=== PATIENT | male | born 1995 | race Caucasian/White ===

== ENCOUNTER → 2016-11-24 00:26 | Emergency (ER) | payer SELFPAY ==
[2016-11-24 01:16] LABS: Hematocrit 51 % (42-52); Hemoglobin 17.3 g/dl (14.0-18.0); Mean Corpuscular HGB Conc 34 g/dl (31-36); Mean Corpuscular Hemoglobin 30 pg (27-31); Mean Corpuscular Volume 88 fL (80-94); Mean Platelet Volume 9 um3 (7.4-10.4); Red Blood Count 5.73 10^6/ul (4.0-5.4); Red Cell Distribution Width 13 % (10.5-15)
[2016-11-24 01:33] LABS: ALT 21 U/L (7-52); AST 15 U/L (13-39); Alkaline Phosphatase 110 U/L (34-104); Anion Gap 8 mmol/L (2-11); BUN/Creatinine Ratio 6.7 (8-20); Blood Urea Nitrogen 7 mg/dL (6-24); CO2 Carbon Dioxide 24 mmol/L (22-32); Calcium 9.8 mg/dL (8.6-10.3); Chloride 107 mmol/L (101-111); EGFR African American 117.1 (>60); Globulin 2.9 g/dL (2-4); Glucose 88 mg/dL (70-100); Potassium 3.7 mmol/L (3.5-5.0); Sodium 139 mmol/L (133-145); Total Protein 7.9 g/dL (6.4-8.9)
[2016-11-24 01:41] LABS: Acetaminophen < 15 mcg/mL; Alcohol 132 mg/dL (<10); Salicylate < 2.50 mg/dL (<30)
[2016-11-24 01:52] LABS: TSH (Thyroid Stimulating Horm) 1.45 mcIU/mL (0.34-5.60)
--- NOTE | 2016-11-24 02:06 | ED ---
Geraldo Bui Rebecca, scribed for Zaheer Villeda MD on 11/24/16 at 0108 . Psychiatric Complaint - HPI Summary HPI Summary: Pt is a 21 y/o M BIB police as a 941 who presents to ED with SIs for a month. Pt reports he messaged somebody concerning the SIs and they called the review specialist. Sx aggravated and alleviated by nothing. He currently has no plan in place. No other complaints at this time. PMHx anxiety. - History Of Current Complaint Chief Complaint: EDMentalHealth Time Seen by Provider: 11/24/16 00:42 Hx Obtained From: Patient Onset/Duration: Lasting Weeks - 1 month, Still Present Aggravating Factor(s): Nothing Alleviating Factor(s): Nothing Associated Signs And Symptoms: Positive: Negative Related History: Positive For: Prior Psychiatric Issues - Anxiety Has Suicidal: Reports: Thoughts - Allergies/Home Medications Allergies/Adverse Reactions: Allergies Allergy/AdvReac Type Severity Reaction Status Date / Time Dust Mite Extract Allergy Runny Nose Verified 04/08/14 15:36 Pollen Extract Allergy Sneezing Verified 04/08/14 15:06 Sulfa Antibiotics Allergy Hives Verified 04/08/14 15:05 PMH/Surg Hx/FS Hx/Imm Hx Endocrine/Hematology History: Denies: Hx Diabetes, Hx Thyroid Disease Respiratory History: Reports: Hx Asthma - allergy induced- pollen, dust, mold Sensory History: Reports: Hx Contacts or Glasses Opthamlomology History: Reports: Hx Contacts or Glasses Psychiatric History: Reports: Hx Anxiety, Hx Attention Deficit Hyperactivity Disorder, Hx Eating Disorder, Hx Community Mental Health Tx, Hx of Violent Episodes Against Others - Surgical History Surgery Procedure, Year, and Place: T&A- 2003- [facility] Hx Anesthesia Reactions: No - Immunization History Date of Tetanus Vaccine: unknown Date of Influenza Vaccine: none Infectious Disease History: No Infectious Disease History: Denies: Traveled Outside the [place] in Last 30 Days - Family History Known Family History: Negative: Cardiac Disease - Social History Alcohol Use: Occasionally Substance Use Type: Reports: Cocaine, Marijuana Substance Use Comment - Amount & Last Used: none for 50 days Smoking Status (MU): Current Every Day Smoker Review of Systems Negative: Fever Positive: Other - SIs All Other Systems Reviewed And Are Negative: Yes Physical Exam Triage Information Reviewed: Yes Vital Signs On Initial Exam: Initial Vitals Temp Pulse Resp BP Pulse Ox 98.6 F 87 18 127/63 99 11/24/16 00:31 11/24/16 00:31 11/24/16 00:31 11/24/16 00:31 11/24/16 00:31 Vital Signs Reviewed: Yes Appearance: Positive: Well-Appearing, No Pain Distress Skin: Positive: Warm Head/Face: Positive: Normal Head/Face Inspection Eyes: Positive: ANTHONY ENT: Positive: Hearing grossly normal Neck: Positive: Supple Respiratory/Lung Sounds: Positive: Breath Sounds Present Cardiovascular: Positive: RRR Abdomen Description: Positive: Nontender, Soft Bowel Sounds: Positive: Present Musculoskeletal: Positive: Strength/ROM Intact Neurological: Positive: Alert, Oriented to Person Place, Time Psychiatric: Positive: Affect/Mood Appropriate - [place] Coma Scale Coma Scale Total: 15 Diagnostics - Vital Signs Vital Signs Temp Pulse Resp BP Pulse Ox 11/24/16 00:31 98.6 F 87 18 127/63 99 - Laboratory Result Diagrams: 11/24/16 01:00 11/24/16 01:00 Lab Statement: Any lab studies that have been ordered have been reviewed, and results considered in the medical decision making process. Course/Dx - Course Assessment/Plan: Pt is a 21 y/o M BIB police as a 941 who presents to ED with SIs for a month. Pt reports he messaged somebody concerning the SIs and they called the review specialist. Sx aggravated and alleviated by nothing. He currently has no plan in place. No other complaints at this time. PMHx anxiety. Medically cleared for MHE at 0224. Pt will be signed out, pending dispo, awaiting MHE. Elevated BP noted and advised to f/u with PCP. - Differential Dx/Clinical Impression Provider Diagnosis: Suicidal ideations Discharge - Discharge Plan Condition: Stable Disposition: OTHER Discharge Disposition Comment: Signed out, pending dispo, awiaiting completion of MHE Referrals: Victor Hugo Saba MD [Primary Care Provider] - The documentation as recorded by the Geraldo linn Rebecca accurately reflects the service I personally performed and the decisions made by me, Zaheer Villeda MD.
[2016-11-24 11:38] VITALS: BP 129/60
== END ==
LOC: ED 00:26
DX: R45.851 Suicidal ideations (principal)
CPT/HCPCS: 36415; 80053; 80320; 80329; 84443; 85025; 99285; G0480

== ENCOUNTER 2017-03-29 14:00 | Emergency (ER) | payer BC ==
[2017-03-29 15:11] LABS: ABS Basophils 0 10^3/ul (0-0.2); ABS Eosinophils 0.3 10^3/ul (0-0.6); ABS Lymphocytes 2.4 10^3/ul (1.0-4.8); ABS Monocytes 0.5 10^3/ul (0-0.8); ABS Neutrophils 4.5 10^3/ul (1.5-7.7); ABS Nucleated RBC 0 10^3/ul; Eosinophil % 4.4 % (0-6); Hematocrit 49 % (42-52); Hemoglobin 16.4 g/dl (14.0-18.0); Lymphocyte % 30.6 % (25-47); Mean Corpuscular HGB Conc 34 g/dl (31-36); Mean Corpuscular Hemoglobin 30 pg (27-31); Mean Corpuscular Volume 90 fL (80-94); Mean Platelet Volume 9 um3 (7.4-10.4); Nucleated Red Blood Cells % 0; Platelet Count 235 10^3/ul (150-450); Red Blood Count 5.39 10^6/ul (4.0-5.4); Red Cell Distribution Width 13 % (10.5-15); White Blood Count 7.8 10^3/ul (3.5-10.8)
[2017-03-29 15:25] LABS: EGFR Non-African American 92.1 (>60)
[2017-03-29 16:19] LABS: Urine Appearance Cloudy; Urine Blood Negative (Negative); Urine Color Yellow; Urine Ketones Negative (Negative); Urine Protein Negative (Negative); Urine Specific Gravity 1.028 (1.010-1.030); Urine Urobilinogen Negative (Negative)
[2017-03-29 18:00] VITALS: BP 131/58
--- NOTE | 2017-04-09 11:43 | ED ---
David Bui Angela, scribed for Bryon Escobar MD on 03/29/17 at 1436 . Psychiatric Complaint - HPI Summary HPI Summary: This pt is a 21 y/o male, accompanied by his grandmother, [facility] thoughts and plan. Pt reports he feels suicidal and has a plan to drive his car into a tree or into another car. He denies auditory or visual hallucinations. Pt has been off his medications for a couple of weeks because he flushed them down the toilet. He is currently on Vyvanse and Abilify. Pt was in [place] recovering from cocaine. Pt denies cocaine use recently. He goes to [facility] (Saturday-Saturday) and is drug tested "all the time" per mother. He admits to using marijuana and drinking alcohol. - History Of Current Complaint Chief Complaint: EDMentalHealth Hx Obtained From: Patient Onset/Duration: Lasting Days, Still Present Timing: Days Severity Currently: Severe Character: Depressed Aggravating Factor(s): Medication Non-compliance Associated Signs And Symptoms: Negative: Hallucinating Has Suicidal: Reports: Thoughts, With A Plan - Allergies/Home Medications Allergies/Adverse Reactions: Allergies Allergy/AdvReac Type Severity Reaction Status Date / Time Dust Mite Extract Allergy Runny Nose Verified 03/29/17 14:28 Pollen Extract Allergy Sneezing Verified 03/29/17 14:28 Sulfa Antibiotics Allergy Hives Verified 03/29/17 14:28 PMH/Surg Hx/FS Hx/Imm Hx Endocrine/Hematology History: Denies: Hx Diabetes, Hx Thyroid Disease Respiratory History: Reports: Hx Asthma - allergy induced- pollen, dust, mold Sensory History: Reports: Hx Contacts or Glasses Opthamlomology History: Reports: Hx Contacts or Glasses Psychiatric History: Reports: Hx Anxiety, Hx Attention Deficit Hyperactivity Disorder, Hx Eating Disorder, Hx Community Mental Health Tx, Hx of Violent Episodes Against Others - Surgical History Surgery Procedure, Year, and Place: T&A- 2003- [facility] Hx Anesthesia Reactions: No - Immunization History Date of Tetanus Vaccine: unknown Date of Influenza Vaccine: none Infectious Disease History: No Infectious Disease History: Denies: Traveled Outside the [place] in Last 30 Days - Family History Known Family History: Negative: Cardiac Disease - Social History Alcohol Use: Occasionally Substance Use Type: Reports: Cocaine, Marijuana Substance Use Comment - Amount & Last Used: none for 50 days Smoking Status (MU): Current Every Day Smoker Review of Systems Negative: Fever, Chills Negative: Erythema Negative: Sore Throat Negative: Chest Pain Negative: Shortness Of Breath, Cough Negative: Abdominal Pain, Vomiting, Nausea Negative: dysuria, hematuria Negative: Myalgia, Edema Negative: Rash Neurological: Other - NEG: dizziness Psychological: Other - SI thoughts and plan Negative: Other - auditory or visual hallucinations All Other Systems Reviewed And Are Negative: Yes Physical Exam - Summary Physical Exam Summary: Constitutional: Well-developed, Well-nourished, Alert. (-) Distressed Skin: Warm, Dry HENT: Normocephalic; Atraumatic Eyes: Conjunctiva normal Neck: Musculoskeletal ROM normal neck. (-) JVD, (-) Stridor, (-) Tracheal deviation Cardio: Rhythm regular, rate normal, Heart sounds normal; Intact distal pulses; The pedal pulses are 2+ and symmetric. Radial pulses are 2+ and symmetric. (-) Murmur Pulmonary/Chest wall: Effort normal. (-) Respiratory distress, (-) Wheezes, (-) Rales Abd: Soft, (-) Tenderness, (-) Distension, (-) Guarding, (-) Rebound Musculoskeletal: (-) Edema Lymph: (-) Cervical adenopathy Neuro: Alert, Oriented x3 Psych: Mood and affect Normal Triage Information Reviewed: Yes Vital Signs On Initial Exam: Initial Vitals Temp Pulse Resp BP Pulse Ox 97.4 F 87 16 143/80 100 03/29/17 14:28 03/29/17 14:28 03/29/17 14:28 03/29/17 14:28 03/29/17 14:28 Vital Signs Reviewed: Yes Diagnostics - Vital Signs Vital Signs Temp Pulse Resp BP Pulse Ox 03/29/17 14:28 97.4 F 87 16 143/80 100 - Laboratory Result Diagrams: 03/29/17 15:01 03/29/17 15:01 Lab Statement: Any lab studies that have been ordered have been reviewed, and results considered in the medical decision making process. Course/Dx - Course Course Of Treatment: This pt is a 21 y/o male, accompanied by his grandmother, presenting to [facility] c/o SI thoughts and plan. Pt reports he feels suicidal and has a plan to drive his car into a tree or into another car. He denies auditory or visual hallucinations. Pt has been off his medications for a couple of weeks because he flushed them down the toilet. Pt was in [place] recovering from cocaine. Pt denies cocaine use recently. He goes to [facility] (Saturday-Saturday) and is drug test "all the time" per mother. He admits to using marijuana and drinking alcohol. Pt is medically cleared at 16:34. Pt is awaiting MHE. Pt was evaluated by MHE. Dr. May, evaluating psychiatrist, recommends discharge. Pt will be discharged home with follow up from [facility]. - Differential Dx/Clinical Impression Provider Diagnosis: Mood disorder Discharge - Discharge Plan Condition: Stable Disposition: HOME Patient Education Materials: Mood Disorders (ED) Referrals: Victor Hugo Saba MD [Medical Doctor] - The documentation as recorded by the David linn Angela accurately reflects the service I personally performed and the decisions made by me, Bryon Escobar MD.
== END 2017-03-29 17:58 | disposition home or self-care (01) ==
LOC: ED 14:26
DX: F39 Unspecified mood [affective] disorder (principal); F32.9 Major depressive disorder, single episode, unspecified; F17.210 Nicotine dependence, cigarettes, uncomplicated; R45.851 Suicidal ideations
CPT/HCPCS: 36415; 80053; 80307; 80320; 80329; 81003; 84443; 85025; 99283; G0480

== ENCOUNTER 2017-04-02 15:16 | Emergency (ER) | payer BC ==
[2017-04-02 17:31] LABS: ABS Basophils 0.1 10^3/ul (0-0.2); ABS Eosinophils 0.3 10^3/ul (0-0.6); ABS Lymphocytes 2.8 10^3/ul (1.0-4.8); ABS Monocytes 0.6 10^3/ul (0-0.8); ABS Neutrophils 5.8 10^3/ul (1.5-7.7); ABS Nucleated RBC 0 10^3/ul; Eosinophil % 3.3 % (0-6); Hematocrit 47 % (42-52); Hemoglobin 16.1 g/dl (14.0-18.0); Lymphocyte % 29.1 % (25-47); Mean Corpuscular HGB Conc 34 g/dl (31-36); Mean Corpuscular Hemoglobin 30 pg (27-31); Mean Corpuscular Volume 89 fL (80-94); Mean Platelet Volume 9 um3 (7.4-10.4); Nucleated Red Blood Cells % 0; Platelet Count 243 10^3/ul (150-450); Red Blood Count 5.31 10^6/ul (4.0-5.4); Red Cell Distribution Width 13 % (10.5-15); White Blood Count 9.5 10^3/ul (3.5-10.8)
[2017-04-02 17:45] LABS: EGFR Non-African American 104.9 (>60)
[2017-04-02 19:26] LABS: Urine Appearance Clear; Urine Blood Negative (Negative); Urine Color Yellow; Urine Ketones Negative (Negative); Urine Protein Negative (Negative); Urine Specific Gravity 1.027 (1.010-1.030); Urine Urobilinogen Negative (Negative)
[2017-04-02 19:35] VITALS: BP 137/77
--- NOTE | 2017-04-02 22:42 | ED ---
Romaine Bui Stephanie, scribed for Nereida Clinton MD on 04/02/17 at 1934 . Psychiatric Complaint - HPI Summary HPI Summary: Pt is a 21 y/o F presenting to the ED with thoughts of SI with a plan. Pt was previously here 5 days ago and was referred by his counselor Rosy from [facility] today. Plan is to drive his car into a tree or into oncoming traffic. Pt has been constantly depressed and has been in rehab for ETOH and cocaine abuse. His last time in rehab was in December. He went to [facility] for his first rehab experience and thought that was valuable. His second rehab experience in Dec 2016 was not beneficial to him because groups were too large, and lecture like per pt. He has thought of killing [himself] repeatedly, because he states he has "obsessive thoughts" but "does not have the means to do it". He has purposefully stopped taking his medications Vyvanse and Abilify because he did not feel they helped him. - History Of Current Complaint Chief Complaint: EDMentalHealth Time Seen by Provider: 04/02/17 16:08 Hx Obtained From: Patient Onset/Duration: Still Present Timing: Constant Severity Initially: Moderate Severity Currently: Mild Character: Depressed, Frustrated Aggravating Factor(s): Nothing Alleviating Factor(s): Nothing Related History: Positive For: Prior Psychiatric Issues, Admissions Related To Substance Abuse Has Suicidal: Reports: Thoughts, With A Plan - Risk Factor(s) Completed Suicide Risk Factors: Male - Allergies/Home Medications Allergies/Adverse Reactions: Allergies Allergy/AdvReac Type Severity Reaction Status Date / Time Dust Mite Extract Allergy Runny Nose Verified 03/29/17 14:28 Pollen Extract Allergy Sneezing Verified 03/29/17 14:28 Sulfa Antibiotics Allergy Hives Verified 03/29/17 14:28 Home Medications: Home Medications Lisdexamfetamine(NF) [Vyvanse(NF)] 40 mg PO DAILY 04/02/17 [History Confirmed ] PMH/Surg Hx/FS Hx/Imm Hx Previously Healthy: No - polysubstance abuse Endocrine/Hematology History: Denies: Hx Diabetes, Hx Thyroid Disease Respiratory History: Reports: Hx Asthma - allergy induced- pollen, dust, mold Sensory History: Reports: Hx Contacts or Glasses Opthamlomology History: Reports: Hx Contacts or Glasses Psychiatric History: Reports: Hx Anxiety, Hx Attention Deficit Hyperactivity Disorder, Hx Eating Disorder - 17 - anorexic, Hx Community Mental Health Tx, Hx of Violent Episodes Against Others - Surgical History Surgery Procedure, Year, and Place: T&A- 2003- [facility] Hx Anesthesia Reactions: No - Immunization History Date of Tetanus Vaccine: unknown Date of Influenza Vaccine: none Infectious Disease History: No Infectious Disease History: Denies: Traveled Outside the [place] in Last 30 Days - Family History Known Family History: Positive: Other - no hx completed suicide in family Negative: Cardiac Disease - Social History Lives: With Family Alcohol Use: Occasionally Hx Substance Use: Yes Substance Use Type: Reports: Cocaine, Marijuana, Other - alcohol Substance Use Comment - Amount & Last Used: last alcohol 03/24/17 Smoking Status (MU): Current Every Day Smoker Review of Systems Negative: Fever Cardiovascular: Negative Respiratory: Negative Gastrointestinal: Negative Skin: Negative Neurological: Negative Positive: Depressed All Other Systems Reviewed And Are Negative: Yes Physical Exam - Summary Physical Exam Summary: Appearance: well-appearing, no pain distress, Well-nourished, multiple tattoos Skin: Warm, color reflects adequate perfusion Head: Normal Head/Face inspection Eyes: Conjunctiva clear ENT: Normal inspection Neck: Supple, no nodes, no JVD. Respiratory: Lungs clear, Normal breath sounds, no respiratory distress Cardio: RRR, No murmur, pulses normal, brisk capillary refill Abdomen: soft, nontender Bowel sounds: present Musculoskeletal: Strength Intact/ ROM intact. No calf tenderness. No edema. Neuro: Alert, muscle tone normal, facial symmetry, speech normal, sensory/motor intact Psychological: depressed, calm, cooperative, coherent speech Triage Information Reviewed: Yes Vital Signs On Initial Exam: Initial Vitals Temp Pulse Resp BP Pulse Ox 99.4 F 74 20 124/60 99 04/02/17 15:25 04/02/17 15:25 04/02/17 15:25 04/02/17 15:25 04/02/17 15:25 Vital Signs Reviewed: Yes - [place] Coma Scale Coma Scale Total: 15 Diagnostics - Vital Signs Vital Signs Temp Pulse Resp BP Pulse Ox 04/02/17 15:25 99.4 F 74 20 124/60 99 - Laboratory Lab Results: Lab Results 01/02/18 01/02/18 01/02/18 Range/Units 17:10 17:10 17:10 WBC 9.5 (3.5-10.8) 10^3/ul RBC 5.31 (4.0-5.4) 10^6/ul Hgb 16.1 (14.0-18.0) g/dl Hct 47 (42-52) % MCV 89 (80-94) fL MCH 30 (27-31) pg MCHC 34 (31-36) g/dl RDW 13 (10.5-15) % Plt Count 243 (150-450) 10^3/ul MPV 9 (7.4-10.4) um3 Neut % (Auto) 60.8 (38-83) % Lymph % (Auto) 29.1 (25-47) % [place] % (Auto) 6.1 (1-9) % Eos % (Auto) 3.3 (0-6) % Baso % (Auto) 0.7 (0-2) % Absolute Neuts (auto) 5.8 (1.5-7.7) 10^3/ul Absolute Lymphs (auto) 2.8 (1.0-4.8) 10^3/ul Absolute Monos (auto) 0.6 (0-0.8) 10^3/ul Absolute Eos (auto) 0.3 (0-0.6) 10^3/ul Absolute Basos (auto) 0.1 (0-0.2) 10^3/ul Absolute Nucleated RBC 0 10^3/ul Nucleated RBC % 0 Sodium 137 (133-145) mmol/L Potassium 4.1 (3.5-5.0) mmol/L Chloride 105 (101-111) mmol/L Carbon Dioxide 28 (22-32) mmol/L Anion Gap 4 (2-11) mmol/L BUN 15 (6-24) mg/dL Creatinine 0.92 (0.67-1.17) mg/dL Est GFR ( Amer) 134.9 (>60) Est GFR (Non-Af Amer) 104.9 (>60) BUN/Creatinine Ratio 16.3 (8-20) Glucose 93 (70-100) mg/dL Lactic Acid 0.9 (0.5-2.0) mmol/L Calcium 9.4 (8.6-10.3) mg/dL Total Bilirubin 0.40 (0.2-1.0) mg/dL AST 16 (13-39) U/L ALT 33 (7-52) U/L Alkaline Phosphatase 93 (34-104) U/L Total Creatine Kinase 67 (10-223) U/L Total Protein 7.0 (6.4-8.9) g/dL Albumin 4.2 (3.2-5.2) g/dL Globulin 2.8 (2-4) g/dL Albumin/Globulin Ratio 1.5 (1-3) TSH 1.63 (0.34-5.60) mcIU/mL Urine Color Urine Appearance Urine pH (5-9) Ur Specific [place] (1.010-1.030) Urine Protein (Negative) Urine Ketones (Negative) Urine Blood (Negative) Urine Nitrate (Negative) Urine Bilirubin (Negative) Urine Urobilinogen (Negative) Ur Leukocyte Esterase (Negative) Urine Glucose (Negative) Salicylates < 2.50 (<30) mg/dL Acetaminophen < 15 mcg/mL Serum Alcohol < 10 (<10) mg/dL 04/02/17 Range/Units 18:37 WBC (3.5-10.8) 10^3/ul RBC (4.0-5.4) 10^6/ul Hgb (14.0-18.0) g/dl Hct (42-52) % MCV (80-94) fL MCH (27-31) pg MCHC (31-36) g/dl RDW (10.5-15) % Plt Count (150-450) 10^3/ul MPV (7.4-10.4) um3 Neut % (Auto) (38-83) % Lymph % (Auto) (25-47) % [place] % (Auto) (1-9) % Eos % (Auto) (0-6) % Baso % (Auto) (0-2) % Absolute Neuts (auto) (1.5-7.7) 10^3/ul Absolute Lymphs (auto) (1.0-4.8) 10^3/ul Absolute Monos (auto) (0-0.8) 10^3/ul Absolute Eos (auto) (0-0.6) 10^3/ul Absolute Basos (auto) (0-0.2) 10^3/ul Absolute Nucleated RBC 10^3/ul Nucleated RBC % Sodium (133-145) mmol/L Potassium (3.5-5.0) mmol/L Chloride (101-111) mmol/L Carbon Dioxide (22-32) mmol/L Anion Gap (2-11) mmol/L BUN (6-24) mg/dL Creatinine (0.67-1.17) mg/dL Est GFR ( Amer) (>60) Est GFR (Non-Af Amer) (>60) BUN/Creatinine Ratio (8-20) Glucose (70-100) mg/dL Lactic Acid (0.5-2.0) mmol/L Calcium (8.6-10.3) mg/dL Total Bilirubin (0.2-1.0) mg/dL AST (13-39) U/L ALT (7-52) U/L Alkaline Phosphatase (34-104) U/L Total Creatine Kinase (10-223) U/L Total Protein (6.4-8.9) g/dL Albumin (3.2-5.2) g/dL Globulin (2-4) g/dL Albumin/Globulin Ratio (1-3) TSH (0.34-5.60) mcIU/mL Urine Color Yellow Urine Appearance Clear Urine pH 5.0 (5-9) Ur Specific [place] 1.027 (1.010-1.030) Urine Protein Negative (Negative) Urine Ketones Negative (Negative) Urine Blood Negative (Negative) Urine Nitrate Negative (Negative) Urine Bilirubin Negative (Negative) Urine Urobilinogen Negative (Negative) Ur Leukocyte Esterase Negative (Negative) Urine Glucose Negative (Negative) Salicylates (<30) mg/dL Acetaminophen mcg/mL Serum Alcohol (<10) mg/dL Result Diagrams: 04/02/17 17:10 04/02/17 17:10 Lab Statement: Any lab studies that have been ordered have been reviewed, and results considered in the medical decision making process. Course/Dx - Course Course Of Treatment: Pt is pending MHE. Per M, psychiatric recreation center director, Dr. May will discharge pt and plan for pt to attend [facility] rehab as soon as possible. - Differential Dx/Clinical Impression Differential Diagnosis/HQI/PQRI: Positive: Anxiety, Bipolar Disorder, Depression , Suicidal Ideation Provider Diagnosis: Depression, Polysubstance abuse - Physician Notifications Discussed Care Of Patient With: M Discharge - Discharge Plan Condition: Stable Disposition: HOME Patient Education Materials: Cannabis Abuse (ED) Referrals: Miguel Ornelas [Other] - As Soon As Possible (Per Dr May, Please contact Admissions as soon as possible) [facility] [Outside] No Primary Care Phys,NOPCP [Primary Care Provider] - The documentation as recorded by the Romaine linn Stephanie accurately reflects the service I personally performed and the decisions made by me, Nereida Clinton MD.
== END 2017-04-02 22:00 | disposition home or self-care (01) ==
LOC: ED 15:16
DX: F32.9 Major depressive disorder, single episode, unspecified (principal); F19.10 Other psychoactive substance abuse, uncomplicated
CPT/HCPCS: 36415; 80053; 80307; 80320; 80329; 81003; 82550; 83605; 84443; 85025; 99284; G0480

== ENCOUNTER 2017-12-06 11:37 | Inpatient (IN) | payer BC ==
--- NOTE | 2017-12-06 12:01 | ED ---
Psychiatric Complaint - HPI Summary HPI Summary: This patient is a 22 year old M presenting to [facility] accompanied by his grandmother with a chief complaint of SI with a plan for weeks, and had an attempt 12/04/17. I want to fucking kill myself, "I thought about hanging myself in the garage and slitting my wrists but that would be too messy". Pt states his suicide attempt involved nasally ingesting 1g, and then IV 1g of cocaine, with the hope his heart would pop. Pt also endorses getting loaded last night. Pt was in rehab in [place] for 7 months, returned to the area 6 weeks ago, and endorses returning depression and SI, with associated drug use. Pt states that his drug use follows his depression and SI, and not the other way around, denying his sx are drug induced. He denies Rx, PMHx. - History Of Current Complaint Chief Complaint: EDMentalHealth Time Seen by Provider: 12/06/17 11:47 Hx Obtained From: Patient Onset/Duration: Gradual Onset, Lasting Weeks, Still Present Timing: Constant Severity Initially: Severe Severity Currently: Moderate Character: Depressed, Frustrated Aggravating Factor(s): Alcohol Use, Drug Use Alleviating Factor(s): Nothing Related History: Positive For: Prior Psychiatric Issues, Drug Abuse Counseling, Admissions Related To Substance Abuse Has Suicidal: Reports: Thoughts, With A Plan, Demonstrates Gesture Has Homicidal: Denies: Thoughts Ingestion History: Type/Name Of Drug - cocaine, Amount Ingested - 1g intranasal , 1g IV, Approximate Time Of Ingestion - 12/04/17 - Allergies/Home Medications Allergies/Adverse Reactions: Allergies Allergy/AdvReac Type Severity Reaction Status Date / Time pollen extracts Allergy Sneezing Verified 12/06/17 11:44 Sulfa (Sulfonamide Allergy Hives Verified 12/06/17 11:44 Antibiotics) dust mite Allergy Runny Nose Uncoded 12/06/17 11:44 PMH/Surg Hx/FS Hx/Imm Hx Endocrine/Hematology History: Denies: Hx Diabetes, Hx Thyroid Disease Cardiovascular History: Denies: Hx Pacemaker/ICD Respiratory History: Reports: Hx Asthma - allergy induced- pollen, dust, mold History: Denies: Hx Dialysis Musculoskeletal History: Denies: Hx Osteoporosis Sensory History: Reports: Hx Contacts or Glasses Denies: Hx Legally Blind, Hx Deafness Opthamlomology History: Reports: Hx Contacts or Glasses Denies: Hx Legally Blind EENT History: Denies: Hx Deafness Neurological History: Denies: Hx Dementia Psychiatric History: Reports: Hx Anxiety, Hx Attention Deficit Hyperactivity Disorder, Hx Eating Disorder - 17 - anorexic, Hx Community Mental Health Tx, Hx Suicide Attempt, Hx of Violent Episodes Against Others, Hx Substance Abuse - Surgical History Surgery Procedure, Year, and Place: T&A- 2003- [facility] Hx Anesthesia Reactions: No - Immunization History Date of Tetanus Vaccine: unknown Date of Influenza Vaccine: none Infectious Disease History: No Infectious Disease History: Denies: Traveled Outside the [place] in Last 30 Days - Family History Known Family History: Positive: Other - no hx completed suicide in family Negative: Cardiac Disease - Social History Lives: With Family Alcohol Use: Daily Hx Substance Use: Yes Substance Use Type: Reports: Cocaine, Marijuana, Other Hx Tobacco Use: Yes Smoking Status (MU): Current Every Day Smoker Review of Systems Negative: Fever Positive: no symptoms reported Positive: Depressed, Other - SI with plan and attempt All Other Systems Reviewed And Are Negative: Yes Physical Exam - Summary Physical Exam Summary: Appearance: Well-appearing, Well-nourished, lying in bed comfortable Skin: Warm, dry, no obvious rash Eyes: sclera anicteric, no conjunctival pallor ENT: mucous membranes moist Neck: deferred Respiratory: No signs of respiratory distress Cardiovascular: Appears well perfused, pulses are nml Abdomen: deferred Musculoskeletal: Moving all 4 extremities without obvious discomfort Neurological: Awake and alert, mentation is normal, speech is fluent and appropriate Psychiatric: affect is normal, does not appear anxious or depressed Triage Information Reviewed: Yes Vital Signs On Initial Exam: Initial Vitals Temp Pulse Resp BP Pulse Ox 97.4 F 89 16 148/100 97 12/06/17 11:40 12/06/17 11:40 12/06/17 11:40 12/06/17 11:40 12/06/17 11:40 Vital Signs Reviewed: Yes Diagnostics - Vital Signs Vital Signs Temp Pulse Resp BP Pulse Ox 12/06/17 11:40 97.4 F 89 16 148/100 97 - Laboratory Result Diagrams: 12/06/17 12:15 12/06/17 12:15 Lab Statement: Any lab studies that have been ordered have been reviewed, and results considered in the medical decision making process. Course/Dx - Course Course Of Treatment: A 22-year-old M presents to the ED with a CC of SI with plan for weeks. (+) depression, suicide attempt of ingesting 2 g cocaine in <1 hour, 1 g intranasal, 1 g IV. (-) sx are drug induced, instead, drug use is sx induced. Returned from 7 months of rehab 6 weeks ago, PMHx inpatient mental health treatment. In the ED course, pt was given ativan and a nicotine inhaler. - Differential Dx/Clinical Impression Provider Diagnosis: Cocaine-induced mood disorder Discharge - Sign-Out/Discharge Documenting (check all that apply): Patient Departure - Discharge Plan Condition: Guarded Disposition: [facility]IATRIC FAC[facility] Referrals: No Primary Care Phys,NOPCP [Primary Care Provider] - - Billing Disposition and Condition Condition: GUARDED Disposition: Psychiatric Facility [facility] - Attestation Statements Document Initiated by Katie: Yes Documenting Scribe: Miguel Ángel Schmidt Provider For Whom Danikaibe is Documenting (Include Credential): Dr. Angel Lee MD Scribe Attestation: Miguel Ángel Bui scribed for Dr. Angel Lee MD on 12/06/17 at 1633. Scribe Documentation Reviewed: Yes Provider Attestation: The documentation as recorded by the Miguel Ángel linn accurately reflects the service I personally performed and the decisions made by me, Dr. Angel Lee MD
[2017-12-06] MEDS ORDERED: LORazepam TAB(*) 1 MG PO ONE (12:12)
[2017-12-06] MEDS ORDERED: Mouth Piece, Nicotine* 1 EACH CARTRIDGE INH PRN ×2 (12:20)
[2017-12-06 12:22] LABS: ABS Basophils 0.1 10^3/ul (0-0.2); ABS Eosinophils 0.5 10^3/ul (0-0.6); ABS Monocytes 0.7 10^3/ul (0-0.8); ABS Neutrophils 6.4 10^3/ul (1.5-7.7); ABS Nucleated RBC 0 10^3/ul; Eosinophil % 4.7 % (0-6); Hematocrit 49 % (42-52); Hemoglobin 16.6 g/dl (14.0-18.0); Lymphocyte % 28.3 % (25-47); Mean Corpuscular HGB Conc 34 g/dl (31-36); Mean Corpuscular Hemoglobin 30 pg (27-31); Mean Corpuscular Volume 89 fL (80-94); Mean Platelet Volume 8.5 um3 (7.4-10.4); Nucleated Red Blood Cells % 0.1; Platelet Count 241 10^3/ul (150-450); Red Blood Count 5.44 10^6/ul (4.00-5.40); Red Cell Distribution Width 14 % (10.5-15); White Blood Count 10.6 10^3/ul (3.5-10.8)
[2017-12-06] MEDS: Nicotine Inhaler* 10 MG AMP INH PRN ×2 (14:37→20:42)
[2017-12-06] MEDS ORDERED: Acetaminophen TAB* 325 MG PO PRN (20:59)
[2017-12-06] MEDS ORDERED: Al Hydrox/Mg Hydrox/Simet LIQ* 30 ML UDC PO PRN (20:59)
[2017-12-06] MEDS ORDERED: LORazepam PO (enter doses in WAM protocol) PO SCH (22:00)
[2017-12-06] MEDS ORDERED: LORazepam PO 0-6 for WAM protocol PO SCH (22:00)
[2017-12-06] MEDS ORDERED: LORazepam IM 0-6 mg for WAM protocol IM SCH (22:00)
[2017-12-07] MEDS: Nicotine GUM* 2 MG PO PRN ×5 (08:49→21:21)
[2017-12-07] MEDS: Vitamin THERAPEUTIC TAB PO SCH (08:49)
[2017-12-07] MEDS: Nicotine Inhaler* 10 MG AMP INH PRN ×6 (08:49→23:54)
[2017-12-07] MEDS: hydrOXYzine HCL TAB* 25 MG PO PRN ×2 (11:49→19:30)
[2017-12-07] MEDS ORDERED: Divalproex DR TAB(*) 500 MG PO ONE (12:00)
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
[2017-12-08] MEDS: hydrOXYzine HCL TAB* 25 MG PO PRN ×2 (03:49→18:01)
[2017-12-08] MEDS: Nicotine GUM* 2 MG PO PRN ×7 (03:51→22:20)
[2017-12-08] MEDS: Vitamin THERAPEUTIC TAB PO SCH (08:21)
[2017-12-08] MEDS: Nicotine Inhaler* 10 MG AMP INH PRN ×6 (08:21→22:21)
[2017-12-08] MEDS ORDERED: Divalproex DR TAB(*) 500 MG PO SCH (21:00)
[2017-12-09] MEDS: Nicotine GUM* 2 MG PO PRN ×5 (00:31→22:42)
[2017-12-09] MEDS: Nicotine Inhaler* 10 MG AMP INH PRN ×5 (00:31→22:42)
[2017-12-09] MEDS: hydrOXYzine HCL TAB* 25 MG PO PRN ×2 (00:33→20:29)
[2017-12-09] MEDS: Vitamin THERAPEUTIC TAB PO SCH (08:45)
--- NOTE | 2017-12-09 14:14 | PN ---
Subjective - Subjective Date of Service: 12/09/17 Service Type: 36852 Hosp care 15 min low complexity Subjective: Patient was seen by self, discussed with treatment team, chart was reviewed. Patient has been compliant with his medications, no reported side effects. Patient reports some improvement in his symptoms, calm and more stability in mood. Patient did not receive an thing on WAM and has not displayed any sign of withdrawal. Although patient requested for Nicotine due to craving and anxiety associated with that. Patient sleeping was disturbed required Benadryl last night. Patient eating has been good. Patient has been cooperative with staff. Patient behavior has been in control. Patient mood was less anxious and dysphoric. Patient has been reporting no suicidal or homicidal ideation. No psychotic symptoms of delusions or hallucinations. Objective - Appearance Appearance: Healthy Appearing, Obese Dysmorphic Features: No Hygiene: Normal Grooming: Fairly Well Kept - Behavior Psychomotor Activities: Normal Exhibits Abnormal Movement: No - Attitude and Relatedness Attitude and Relatedness: Cooperative Eye Contact: Fair - Speech Quality: Unpressured Latencies: Normal Quantity: Appropriate - Mood Patient's Decription of Mood: "Okay" - Affect Observed Affect: Fair Affect Consistent with: Dysphoria - less - Thought Process Patient's Thought Process: Coherent, Goal Directed Thought Content: No Passive Wish, No Suicidal Planning, No Homicidal Ideation, No Paranoid Ideation - Sensorium Experiencing Hallucinations: No, Sensorium is Clear Type of Hallucinations: Visual: No, Auditory: No, Command: No - Level of Consciousness Orientation: Yes Intact, Yes Orientated to Time, Yes Orientated to Place, Yes Orientated to Person - Impulse Control Impulse Control: Intact - Insight and Judgement Insight and Judgement: Fair - Medication Management Medication Management Adherence: Yes Assessment - Assessment Merits Inpatient Hospitalization: For Immediate Safety, For Stabilization, For Discharge Planning Inpatient DSM-V Dx: F39 Clinical Impression: Patient with history of Substance abuse, ? ADHD and unspeicifed mood symptoms. Patient currently admitted due to worsening of alcohol use, depression, suicidal attempt with cocaine overdose. Patient has also been struggling in his relationship with father that precipitated this suicidal attempt as per patient. Patient is a danger to self, discharged hence medications are being adjusted and symptoms will be stabilized on inpatient. Plan - Plan Treatment Plan: Name: SOLEDAD ANDERSEN Birthdate: 1995 [id number] - Patient continues to be hospitalized due to recent suicidal attempt, substance abuse, mood instability, and impulsivity. - Patient's medications were adjusted after informed consent with increment in Depakote to 500mg BID and WAM was discontinued instead started on Ativan 1 mg PO Q 6HRS PRN Alcohol withdrawal. - Patient will be monitored for improvement and side effects. Risk and benefits were discussed. - Patient was encouraged to continue his participation in the milieu, group and individual therapy. Medications: Current Medications Acetaminophen (Tylenol Tab*) 650 mg PO Q4H PRN PRN Reason: PAIN or TEMP > 101 F Al Hydrox/Mg Hydrox/Simethicone (Maalox Plus*) 30 ml PO Q4H PRN PRN Reason: INDIGESTION Device (Nicotine Mouth Piece*) 1 each INH .USE WITH NICOTROL PRN PRN Reason: CRAVING Divalproex Sodium (Depakote Dr Tab(*)) 500 mg PO BID COBY Hydroxyzine HCl (Atarax Tab*) 25 mg PO Q6H PRN PRN Reason: ANXIETY Last Admin: 12/09/17 00:33 Dose: 25 mg Lorazepam (Ativan Tab(*)) 0 - 6 mg PO .PER WAM PARAMETERS COBY; Protocol Last Admin: 12/07/17 11:48 Dose: 2 mg Lorazepam (Ativan Tab(*)) 0 - 6 mg PO .PER WAM PARAMETERS COBY; Protocol Last Admin: 12/06/17 22:47 Dose: 2 mg Lorazepam (Ativan Inj*) 0 - 6 mg IM .PER WAM PROTOCOL COBY; Protocol Multivitamins (Theragran Tab*) 1 tab PO DAILY COBY Last Admin: 12/09/17 08:45 Dose: Not Given Nicotine (Nicotine Inhaler*) 10 mg INH Q2H PRN PRN Reason: CRAVING Last Admin: 12/09/17 14:02 Dose: 10 mg Nicotine Polacrilex (Nicotine Gum*) 2 mg PO Q2H PRN PRN Reason: CRAVING Last Admin: 12/09/17 14:02 Dose: 2 mg
[2017-12-09] MEDS ORDERED: LORazepam TAB(*) 1 MG PO PRN (14:20)
[2017-12-09] MEDS: Divalproex DR TAB(*) 500 MG PO SCH (20:25)
[2017-12-10] MEDS: Nicotine Inhaler* 10 MG AMP INH PRN ×6 (01:25→22:38)
[2017-12-10] MEDS: Nicotine GUM* 2 MG PO PRN ×6 (01:25→22:38)
[2017-12-10] MEDS: Divalproex DR TAB(*) 500 MG PO SCH ×2 (08:22→20:24)
[2017-12-10] MEDS: Vitamin THERAPEUTIC TAB PO SCH (08:23)
[2017-12-10] MEDS: hydrOXYzine HCL TAB* 25 MG PO PRN ×2 (12:43→20:24)
--- NOTE | 2017-12-10 14:43 | PN ---
Subjective - Subjective Date of Service: 12/10/17 Service Type: 90673 Hosp care 15 min low complexity Subjective: Patient was seen by self, discussed with treatment team, chart was reviewed. Patient has been compliant with his medications, no reported side effects. Patient reports improvement in his symptoms, calm and more stability in mood, sleep is still somewhat disturbed and takes Benadryl to help with that. Patient reports sleep issues are more prominent here as he follows a different sleep schedule due to his work. Patient has not displayed any sign of withdrawal and did not require Ativan. Patient reported that when he was abstinent for about 7 months in [place] he was functioning well in a group home housing without any medications but required a structured setting. Patient eating has been good. Patient has been cooperative with staff. Patient behavior was in control. Patient mood was less anxious and less dysphoric. Patient has been reporting no suicidal or homicidal ideation. No psychotic symptoms of delusions or hallucinations. Patient was looking forward to follow up outpatient for medications and attend AA/NA meetings to help with his alcohol/substance related problem and declined any substance abuse program at this time. Objective - Appearance Appearance: Healthy Appearing Dysmorphic Features: No Hygiene: Normal Grooming: Fairly Well Kept - Behavior Psychomotor Activities: Normal Exhibits Abnormal Movement: No - Attitude and Relatedness Attitude and Relatedness: Cooperative Eye Contact: Fair - Speech Quality: Unpressured Latencies: Normal Quantity: Appropriate - Mood Patient's Decription of Mood: "better" - Affect Observed Affect: Fair Affect Consistent with: Euthymia - Thought Process Patient's Thought Process: Coherent Thought Content: No Passive Wish, No Suicidal Planning, No Homicidal Ideation, No Paranoid Ideation - Sensorium Experiencing Hallucinations: No, Sensorium is Clear Type of Hallucinations: Visual: No, Auditory: No, Command: No - Level of Consciousness Level of Consciousness: Alert Orientation: Yes Intact, Yes Orientated to Time, Yes Orientated to Place, Yes Orientated to Person - Impulse Control Impulse Control: Intact - Insight and Judgement Insight and Judgement: Fair - Group Participation Particating in Group Activities: Yes - Medication Management Medication Management Adherence: Yes Assessment - Assessment Merits Inpatient Hospitalization: For Immediate Safety, For Stabilization, For Discharge Planning Inpatient DSM-V Dx: F39 Clinical Impression: Patient with history of Substance abuse, ? ADHD and unspeicifed mood symptoms. Patient currently admitted due to worsening of alcohol use, depression, suicidal attempt with cocaine overdose. Patient has also been struggling in his relationship with father that precipitated this suicidal attempt as per patient. Patient is a danger to self, discharged hence medications are being adjusted and symptoms will be stabilized on inpatient. Plan - Plan Treatment Plan: Name: SOLEDAD ANDERSEN Birthdate: 1995 [id number] - Patient continues to be hospitalized due to recent suicidal attempt, substance abuse, mood instability, and impulsivity. - Patient's medications were adjusted after informed consent with continuation of Depakote to 500mg BID and Ativan prn was discontinued. - Patient will be monitored for improvement and side effects. Risk and benefits were discussed. - Patient was encouraged to continue his participation in the milieu, group and individual therapy. Medications: Current Medications Acetaminophen (Tylenol Tab*) 650 mg PO Q4H PRN PRN Reason: PAIN or TEMP > 101 F Al Hydrox/Mg Hydrox/Simethicone (Maalox Plus*) 30 ml PO Q4H PRN PRN Reason: INDIGESTION Device (Nicotine Mouth Piece*) 1 each INH .USE WITH NICOTROL PRN PRN Reason: CRAVING Divalproex Sodium (Depakote Dr Tab(*)) 500 mg PO BID [facility] Last Admin: 12/10/17 08:22 Dose: 500 mg Hydroxyzine HCl (Atarax Tab*) 25 mg PO Q6H PRN PRN Reason: ANXIETY Last Admin: 12/10/17 12:43 Dose: 25 mg Multivitamins (Theragran Tab*) 1 tab PO DAILY [facility] Last Admin: 12/10/17 08:23 Dose: Not Given Nicotine (Nicotine Inhaler*) 10 mg INH Q2H PRN PRN Reason: CRAVING Last Admin: 12/10/17 12:44 Dose: 10 mg Nicotine Polacrilex (Nicotine Gum*) 2 mg PO Q2H PRN PRN Reason: CRAVING Last Admin: 12/10/17 12:43 Dose: 2 mg
[2017-12-11] MEDS: Nicotine GUM* 2 MG PO PRN (01:29)
[2017-12-11] MEDS: Nicotine Inhaler* 10 MG AMP INH PRN (08:19)
[2017-12-11] MEDS: Divalproex DR TAB(*) 500 MG PO SCH (08:19)
[2017-12-11] MEDS: Vitamin THERAPEUTIC TAB PO SCH (08:19)
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
[2017-12-11 11:49] VITALS: BP 148/98
== END 2017-12-11 11:00 | disposition home or self-care (01) | DRG 753 ==
LOC: ED 11:37 → BSU 17:54
PROVIDERS: ADMIT Psychiatry & Neurology Psychiatry; ATTEND Psychiatry & Neurology Psychiatry
DX: F39 Unspecified mood [affective] disorder (principal); R45.851 Suicidal ideations; F50.00 Anorexia nervosa, unspecified; F10.239 Alcohol dependence with withdrawal, unspecified; F32.9 Major depressive disorder, single episode, unspecified; J45.909 Unspecified asthma, uncomplicated; F90.9 Attention-deficit hyperactivity disorder, unspecified type; F17.200 Nicotine dependence, unspecified, uncomplicated; G47.00 Insomnia, unspecified; E66.9 Obesity, unspecified; Z91.410 Personal history of adult physical and sexual abuse; Z91.09 Other allergy status, other than to drugs and biological substances; Z72.89 Other problems related to lifestyle; Z88.2 Allergy status to sulfonamides; Z68.36 Body mass index [BMI] 36.0-36.9, adult; Z81.8 Family history of other mental and behavioral disorders; Z81.1 Family history of alcohol abuse and dependence; Z91.5 Personal history of self-harm
CPT/HCPCS: 36415; 80053; 80061; 80307; 80320; 80329; 83036; 85025; 99222; 99231; 99238; 99285; A9270-GY; G0480

== ENCOUNTER 2019-05-16 10:53 | Emergency (ER) | payer BC, OTHER ==
[2019-05-16 11:06] VITALS: BP 122/77
--- NOTE | 2019-05-16 11:27 | UC ---
Abdominal Pain Male HPI - HPI Summary HPI Summary: Pt presents with c/o gradual onset of generalized abdominal pain. P t states that he "eats like shit" that his diet is "terrible" Pt reports that abdominal pain began ~ 1 month ago and has continued to worsen. Pt denies nausea, vomiting, fever, or diarrhea. Denies FMhx of GI disorders. - History of Current Complaint Chief Complaint: UCAbdominalPain Stated Complaint: ABDOMINAL PAIN Time Seen by Provider: 05/16/19 11:10 Hx Obtained From: Patient Onset/Duration: Gradual Onset, Lasting Weeks, Still Present, Worse Since - onset Timing: Constant Severity Initially: Moderate Severity Currently: Severe Pain Intensity: 7 Location: Diffuse Radiates: No Character: Aching, Burning, Colicy, Dull, Sharp Aggravating Factor(s): Food, Movement, Deep Breaths Alleviating Factor(s): Nothing Associated Signs And Symptoms: Positive: Decreased Appetite - Risk Factors Testicular Torsion: Negative Cardiac Risk Factors: Negative - Allergies/Home Medications Allergies/Adverse Reactions: Allergies Allergy/AdvReac Type Severity Reaction Status Date / Time pollen extracts Allergy Sneezing Verified 05/16/19 11:06 Sulfa (Sulfonamide Allergy Hives Verified 05/16/19 11:06 Antibiotics) dust mite Allergy Runny Nose Uncoded 05/16/19 11:06 PMH/Surg Hx/FS Hx/Imm Hx Previously Healthy: Yes - Surgical History Surgical History: Yes Surgery Procedure, Year, and Place: T&A- 2003- [facility] - Family History Known Family History: Positive: Other - no hx completed suicide in family Negative: Cardiac Disease - Social History Occupation: Employed Full-time Lives: With Family Alcohol Use: Rare Alcohol Amount: 15+ Substance Use Type: Marijuana Substance Use Comment - Amount & Last Used: has not used cocaine or haroin since 01/16, pot daily Smoking Status (MU): Light Every Day Tobacco Smoker Type: Cigarettes Have You Smoked in the Last Year: Yes - Immunization History Most Recent Influenza Vaccination: 01/11 Most Recent Pneumonia Vaccination: none Vaccination Up to Date: Yes Review of Systems All Other Systems Reviewed And Are Negative: Yes Constitutional: Positive: Fatigue Skin: Positive: Negative Eyes: Positive: Negative ENT: Positive: Negative Respiratory: Positive: Negative Cardiovascular: Positive: Negative Gastrointestinal: Positive: Abdominal Pain Genitourinary: Positive: Negative Motor: Positive: Negative Neurovascular: Positive: Negative Musculoskeletal: Positive: Negative Neurological/Mental Status: Positive: Negative Psychological: Positive: Negative Is Patient Immunocompromised?: No Physical Exam Appearance: Ill-Appearing, Pain Distress Vital Signs: Initial Vital Signs Temp 97.5 F 05/16/19 11:00 Pulse 61 05/16/19 11:00 Resp 18 05/16/19 11:00 BP 122/77 05/16/19 11:00 Pulse Ox 100 05/16/19 11:00 Vital Signs Reviewed: Yes Eye Exam: Normal ENT Exam: Normal ENT: Positive: Normal ENT inspection, Hearing grossly normal Dental Exam: Normal Neck exam: Normal Respiratory Exam: Normal Cardiovascular Exam: Normal Abdomen Description: Positive: Other: - generalized tenderness, Bowel Sounds: Positive: Present Musculoskeletal Exam: Normal Neurological Exam: Normal Psychological Exam: Normal Skin Exam: Normal Abd Pain Male Course/Dx - Course Course Of Treatment: I discussed with the pt the need for further testing and evaluation that could be done at the closest emergency room. I also discussed with the pt the need to engage in nutrition education and address nutritional concerns expressed at today's visit. - Differential Dx/Clinical Impression Differential Diagnosis/HQI/PQRI: Appendicitis, Diverticulitis, Gall Bladder Disease, Peptic Ulcer Disease Provider Diagnosis: Abdominal pain in male Discharge ED - Sign-Out/Discharge Documenting (check all that apply): Patient Departure All imaging exams completed and their final reports reviewed: No Studies - Discharge Plan Condition: Stable Disposition: HOME-RECOMMEND TO ED Patient Education Materials: Acute Abdominal Pain (ED) Referrals: Isaac Choi MD [Primary Care Provider] - As Soon As Possible Additional Instructions: It is recommended that you go to the closest emergency room for further evaluation and testing. - Billing Disposition and Condition Condition: STABLE Disposition: Home-Recommend to ED
== END 2019-05-16 11:33 | disposition home health service (06) ==
LOC: UCCORT 10:53
DX: R10.84 Generalized abdominal pain (principal); F17.210 Nicotine dependence, cigarettes, uncomplicated; R53.83 Other fatigue; Z91.09 Other allergy status, other than to drugs and biological substances; Z88.2 Allergy status to sulfonamides
CPT/HCPCS: 99212; G0463